=== PATIENT | female | born 1950 | race Hispanic/Latino ===

== ENCOUNTER 2018-04-20 22:00 | Emergency (ER) | payer MEDICARE, OTHER ==
[2018-04-21 00:21] LABS: EOSINOPHILS % (AUTO) 0.7 % (0.0-8.0); HEMATOCRIT 37.5 % (36-48); LYMPHOCYTES % (AUTO) 52.4 % (21.0-51.0); MEAN CORPUSCULAR HEMOGLOBIN 32.2 pg (27.0-33.0); MEAN CORPUSCULAR VOLUME 91.9 fL (79-99); MONOCYTES % (AUTO) 8.3 % (3.0-13.0); NEUTROPHILS % (AUTO) 37.6 % (40.0-77.0); PLATELET COUNT (AUTO) 363 K/uL (130-400); RED BLOOD CELL COUNT(AUTO) 4.08 MIL/uL (4.00-5.50); RED CELL DISTRIBUTION WIDTH 12.7 % (11.0-15.5); WHITE BLOOD COUNT (AUTO) 6.1 K/uL (4.8-10.8)
[2018-04-21 00:29] LABS: CREATININE 0.9 mg/dL (0.5-1.5); POTASSIUM 3.9 mmol/L (3.5-5.1)
[2018-04-21 00:33] LABS: ALBUMIN 3.7 g/dL (3.5-5.0); BILIRUBIN,TOTAL 0.4 mg/dL (0.2-1.0); TOTAL PROTEIN, SERUM 7.2 g/dL (6.0-8.3)
[2018-04-21] MEDS ORDERED: SODIUM CHLORIDE 0.9% 1000ML 1,000 ML IV ONE (00:54)
[2018-04-21] MEDS ORDERED: KETOROLAC TROMETHAMINE 30MG/ML ONE (00:54)
[2018-04-21] MEDS ORDERED: ONDANSETRON HCL 4 MG/2 ML VIAL ONE (00:54)
[2018-04-21 01:08] LABS: INR 0.95 (0.85-1.15); PARTIAL THROMBOPLASTIN TIME 27.7 SEC (26.3-35.5)
[2018-04-21] MEDS ORDERED: CYCLOBENZAPRINE HCL 10 MG TABLET ONE (02:27)
== END 2018-04-21 02:49 | disposition home or self-care (01) ==
LOC: EDH 22:00
DX: M54.42 Lumbago with sciatica, left side (principal); M54.41 Lumbago with sciatica, right side; E78.5 Hyperlipidemia, unspecified; I10 Essential (primary) hypertension; Z88.6 Allergy status to analgesic agent; Z90.49 Acquired absence of other specified parts of digestive tract; Z98.890 Other specified postprocedural states
CPT/HCPCS: 36415; 71045; 80053; 82550; 85025; 85378; 85610; 85730; 87804 ×2; 96374; 99284; J1885; J2405; J7030

== ENCOUNTER 2019-07-25 06:23 | Day surgery (SDC) | payer OTHER ==
[2019-07-24 12:10] LABS: BASOPHILS % (AUTO) 0.7 % (0.0-5.0); EOSINOPHILS % (AUTO) 1.3 % (0.0-8.0); HEMATOCRIT 41.4 % (36-48); LYMPHOCYTES % (AUTO) 45.9 % (21.0-51.0); MEAN CORPUSCULAR HEMOGLOBIN 30.8 pg (27.0-33.0); MEAN CORPUSCULAR HGB CONC 32.9 g/dL (32.0-36.0); MEAN CORPUSCULAR VOLUME 93.9 fL (79-99); MONOCYTES % (AUTO) 8.6 % (3.0-13.0); NEUTROPHILS % (AUTO) 43.2 % (40.0-77.0); PLATELET COUNT (AUTO) 330 K/uL (130-400); RED BLOOD CELL COUNT(AUTO) 4.41 MIL/uL (4.00-5.50); RED CELL DISTRIBUTION WIDTH 12.2 % (11.0-15.5)
[2019-07-24 12:23] LABS: CREATININE 0.7 mg/dL (0.5-1.5); POTASSIUM 3.9 mmol/L (3.5-5.1)
[2019-07-24 12:32] VITALS: BP 171/93
--- NOTE | 2019-07-24 13:08 | NUR ---
nursing abn ekg sent to dr valera and pending call Addendum: 07/24/19 at 1309 by ALICE CRAVEN RN Amended: Links added.
--- NOTE | 2019-07-24 15:26 | NUR ---
nursing regarding abnormal ekg. per dr moraima umaña to proceed with surgery tomorrow Addendum: 07/24/19 at 1527 by ALICE CRAVEN RN Amended: Links added.
[2019-07-25] VITALS (22 sets, daily range): BP systolic 130–168; BP diastolic 67–81
[~2019-07-25] VITALS: Ht 160 cm; Wt 81.5 kg
[~2019-07-25 06:23] MED LIST: ASPI-555 PO; ATOR20TA65 PO; CITA40TA6 PO; LISI1TAB29 PO
[2019-07-25] MEDS ORDERED: LACTATED RINGERS 1000ML 1,000 ML IV ONE (08:51)
--- NOTE | 2019-07-25 09:00 | NUR ---
POTENTIAL FOR INFECTION: NO SHAVING NEEDED TO LEFT SHOULDER / LEFT ARM ASSESSED PER MARY TEAGUE MA. WIPED LEFT ARM / LEFT SHOULDER WITH BREANNA: 2% CHLORHEXIDINE GLUCONATE CLOTH PATIENTS PRE-OP SKIN PREP PER MARY TEAGUE MA.
[2019-07-25] MEDS: CEFAZOLIN SODIUM 1 GM VIAL IVP ONE ×2 (09:07→10:04)
[2019-07-25] MEDS ORDERED: LIDOCAINE PF 2% 5ML ABBOJECT ONE (09:39)
[2019-07-25] MEDS ORDERED: MIDAZOLAM HCL 1 MG/ML 2ML VIAL ONE (09:39)
[2019-07-25] MEDS ORDERED: PROPOFOL 10 MG/ML 20ML VIAL IV ONE (09:39)
[2019-07-25] MEDS ORDERED: FENTANYL CITRATE PF 50 MCG/1 ML 5ML AMP IV ONE (09:40)
[2019-07-25] MEDS ORDERED: ROCURONIUM 10MG/1ML SYR 10 MG/ML ML ONE (09:40)
[2019-07-25] MEDS ORDERED: ROPIVACAINE 0.5% 5MG/ML 30ML IJ ONE (09:44)
[2019-07-25] MEDS ORDERED: EPHEDRINE SULFATE 50 MG/ML AMPULE ONE (10:07)
[2019-07-25] MEDS ORDERED: DEXAMETHASONE SOD PHOSPHATE 10MG/ML 1ML VIAL ONE (10:32)
[2019-07-25] MEDS ORDERED: NEOSTIGMINE 5MG/5ML SYR IV ONE (10:32)
[2019-07-25] MEDS ORDERED: GLYCOPYRROLATE 1 MG/5 ML SYRINGE ONE (10:32)
[2019-07-25] MEDS ORDERED: ONDANSETRON HCL 4 MG/2 ML VIAL ONE ×2 (10:32→11:40)
[2019-07-25] MEDS ORDERED: BUPIVACAINE/EPI/PF 0.5% 30ML VIAL IJ ONE (10:55)
--- NOTE | 2019-07-25 13:00 | NUR ---
DOUGIE GASTELUM, AT BEDSIDE TO EVALUATE PT BEFORE BEING DISCHARGED, PT EASILY AROUSABLE BUT STATES SHE IS STILL VERY SLEEPY. PER DOUGIE DIOP CRNA PT STABLE FOR DISCHARGE. INSTRUCTIONS TO RETURN TO HOSPITAL OR CALL MD WITH CONCERNS.
== END 2019-07-25 15:15 | disposition home or self-care (01) ==
LOC: DAH 06:23
PROVIDERS: ATTEND Orthopaedic Surgery
DX: M75.112 Incomplete rotator cuff tear or rupture of left shoulder, not specified as traumatic (principal); M24.112 Other articular cartilage disorders, left shoulder; M75.52 Bursitis of left shoulder; M75.42 Impingement syndrome of left shoulder; E78.5 Hyperlipidemia, unspecified; F41.9 Anxiety disorder, unspecified; I10 Essential (primary) hypertension; F32.9 Major depressive disorder, single episode, unspecified; K21.9 Gastro-esophageal reflux disease without esophagitis; I25.10 Atherosclerotic heart disease of native coronary artery without angina pectoris; M19.90 Unspecified osteoarthritis, unspecified site; Z88.5 Allergy status to narcotic agent; Z79.82 Long term (current) use of aspirin; Z82.49 Family history of ischemic heart disease and other diseases of the circulatory system
CPT/HCPCS: 29822; 29826; 36415; 64415; 76942; 80048; 82948; 85025; 93005; A4213; A4215; A4221; A4222; A4223; A4510; A4565; A4600; A4606; A4649 ×2; A4663; A4930; A5120; A6223; A6260; J0690; J1030; J1100; J2001; J2250; J2405 ×2; J2704; J2710; J2795; J3010; J3490 ×3; J7030; J7120 ×2